=== PATIENT | male | born 1980 | race Caucasian/White ===

== ENCOUNTER 2018-01-23 01:14 | Emergency (ER) | payer BC ==
[2018-01-23] MEDS ORDERED: Hydrocortisone Acetate 25 MG Supp RECTAL STA (01:45)
--- NOTE | 2018-01-23 01:53 | EDM.PDOC ---
ED HPI GENERAL MEDICAL PROBLEM - General Chief Complaint: Gastrointestinal Problem Stated Complaint: HEMORRHOIDS Time Seen by Provider: 01/23/18 01:39 Source of Information: Reports: Patient, RN Notes Reviewed History Limitations: Reports: No Limitations - History of Present Illness INITIAL COMMENTS - FREE TEXT/NARRATIVE: 37-year-old gentleman presents to emergency department day complaint of hemorrhoids, he states this particular hemorrhoid has been on going for the last 3 days it is painful he has tried Tucks and witch mykel as well as Preparation H without any relief hemrrhoid Pain Score (Numeric/FACES): 5 - Related Data Allergies Allergy/AdvReac Type Severity Reaction Status Date / Time Penicillins Allergy Cannot Verified 01/23/18 01:35 Remember Home Meds: Home Meds Fexofenadine/Pseudoephedrine [Joyce-D 24 Hour Tablet] 1 tab PO DAILY 01/23/18 [History] Past Medical History - Past Health History Medical/Surgical History: Denies Medical/Surgical History Social & Family History - Tobacco Use Smoking Status *Q: Current Every Day Smoker Years of Tobacco use: 20 Packs/Tins Daily: 0.5 - Caffeine Use Caffeine Use: Reports: Coffee, Energy Drinks, Soda, Tea - Recreational Drug Use Recreational Drug Use: No ED ROS GENERAL - Review of Systems Review Of Systems: See Below GI/Abdominal: Reports: Other (Hemorrhoids) ED EXAM, GI/ABD - Physical Exam Exam: See Below (Hemorrhoids hemorrhoids) Exam Limited By: No Limitations General Appearance: Alert, WD/WN, No Apparent Distress Rectal (Males) Exam: Normal Exam, Normal Rectal Tone, Hemorrhoids (Thrombosed) Course - Vital Signs Last Recorded V/S: Last Vital Signs Temp 97.7 F 01/23/18 01:32 Pulse 105 H 01/23/18 01:32 Resp 16 01/23/18 01:32 BP 128/84 01/23/18 01:32 Pulse Ox 98 01/23/18 01:32 - Orders/Labs/Meds Meds: Medications Discontinued Medications Generic Name Dose Route Start Last Admin Trade Name Freq PRN Reason Stop Dose Admin Hydrocortisone Acetate 25 mg 01/23/18 01:45 Anucort-Hc RECTAL 01/23/18 01:46 NOW STA Departure - Departure Time of Disposition: 01:52 Disposition: Home, Self-Care 01 Condition: Fair Clinical Impression: Hemorrhoids Qualifiers: Hemorrhoid type: third degree Qualified Code(s): K64.2 - Third degree hemorrhoids - Discharge Information Referrals: PCP,None [Primary Care Provider] - Additional Instructions: Try the steroid cream please contact the clinic in the morning for an appointment time - Assessment/Plan Plan: Assessment Acuity = acute Site and laterality = thrombosed hemorrhoid Etiology = weakness and venous structure Manifestations = none Location of injury = Home Lab values = none Plan I did offer him surgical incision of his thrombosed hemorrhoid he declined would prefer to try Anusol HC and watchful waiting consultation was set up with general surgery in the clinic for the end of the week This note was dictated using [employer] voice recognition software please call with any questions on syntax or grammar.
== END 2018-01-23 01:58 | disposition home or self-care (01) ==
LOC: JP.ED 01:14
DX: K64.2 Third degree hemorrhoids (principal); F17.210 Nicotine dependence, cigarettes, uncomplicated; Z88.0 Allergy status to penicillin; Z79.899 Other long term (current) drug therapy
CPT/HCPCS: 99285; A9270

== ENCOUNTER 2019-05-23 16:02 | Emergency (ER) | payer BC ==
--- NOTE | 2019-05-23 18:27 | EDM.PDOC ---
ED HPI GENERAL MEDICAL PROBLEM - General Chief Complaint: Chest Pain Stated Complaint: CHEST PAINS Time Seen by Provider: 05/23/19 18:05 Source of Information: Reports: Patient History Limitations: Reports: No Limitations - History of Present Illness INITIAL COMMENTS - FREE TEXT/NARRATIVE: 37-year-old male with intermittent abdominal and chest pain for 3 months. Seems to be worse when he is relaxed or at rest. Does not seem to be related to eating or activity. He goes several days at times without symptoms, then will have a day or 2 where he has right upper quadrant abdominal pain and over the past several weeks started developed some intermittent left-sided chest discomfort. He also feels like his left arm goes numb at times and has some right heel pain. He went into the clinic to talk about these issues 2 months ago, a work-up was initiated and nothing was found. They told him if it does not improve over the course of the next 1 to 2 months to return and some additional work-up will be done, he went into the clinic today to talk about this and they sent him to the emergency room, unfortunately he was not triaged at the clinic by his provider and no phone call was provided or history of the work-up. At the time I saw him he had some very vague upper abdominal discomfort but otherwise was comfortable. He has had no diarrhea or constipation, dark stools, nausea or vomiting, weight loss, or shortness of breath or symptoms with activity. Onset: Gradual Duration: Chronic (Over 3 months) Location: Reports: Chest, Abdomen Associated Symptoms: Denies: Fever/Chills, Loss of Appetite, Malaise, Nausea/ Vomiting, Shortness of Breath chest Pain Score (Numeric/FACES): 1 - Related Data Allergies Allergy/AdvReac Type Severity Reaction Status Date / Time Penicillins Allergy Itching Verified 05/23/19 16:33 Home Meds: Home Meds Loratadine [Claritin] 10 mg PO DAILY 05/23/19 [History] Past Medical History - Past Health History Medical/Surgical History: Denies Medical/Surgical History Social & Family History - Tobacco Use Smoking Status *Q: Former Smoker Used Tobacco, but Quit: Yes Month/Year Tobacco Last Used: 1 - Caffeine Use Caffeine Use: Reports: Coffee, Energy Drinks - Recreational Drug Use Recreational Drug Use: No ED ROS GENERAL - Review of Systems Review Of Systems: See Below Constitutional: Denies: Fever, Chills, Decreased Appetite HEENT: Reports: No Symptoms Respiratory: Reports: Other (Mild intermittent left chest pain unrelated to activity). Denies: Shortness of Breath Cardiovascular: Reports: Chest Pain. Denies: Palpitations GI/Abdominal: Reports: Abdominal Pain (Mostly epigastric and right upper quadrant, not related to activity or meals, seems to be worse when at rest) Skin: Reports: No Symptoms Neurological: Reports: No Symptoms Psychiatric: Reports: No Symptoms ED EXAM, GENERAL - Physical Exam Exam: See Below Exam Limited By: No Limitations General Appearance: Alert, No Apparent Distress Eye Exam: Bilateral Eye: Normal Inspection (No jaundice) Throat/Mouth: Normal Inspection Head: Atraumatic Respiratory/Chest: No Respiratory Distress, Lungs Clear Cardiovascular: Regular Rate, Rhythm GI/Abdominal: Soft, Tender (Does react with discomfort with palpation across the upper abdomen but no focal rebound or guarding) Neurological: Alert, Oriented Psychiatric: Normal Affect, Normal Mood Skin Exam: Warm, Dry Course - Vital Signs Last Recorded V/S: Last Vital Signs Temp 97.8 F 05/23/19 16:35 Pulse 70 05/23/19 16:35 Resp 16 05/23/19 16:35 BP 136/91 H 05/23/19 16:35 Pulse Ox 97 05/23/19 16:35 - Orders/Labs/Meds Labs: Laboratory Tests 05/23/19 05/23/19 Range/Units 18:12 18:12 WBC 7.9 (4.5-11.0) K/uL RBC 5.33 (4.30-5.90) M/uL Hgb 16.8 H (12.0-15.0) g/dL Hct 46.4 (40.0-54.0) % MCV 87 (80-98) fL MCH 32 H (27-31) pg MCHC 36 (32-36) % Plt Count 264 (150-400) K/uL Neut % (Auto) 67 H (36-66) % Lymph % (Auto) 24 (24-44) % Patrick % (Auto) 6 (2-6) % Eos % (Auto) 2 (2-4) % Baso % (Auto) 1 (0-1) % Sodium 140 (140-148) mmol/L Potassium 4.3 (3.6-5.2) mmol/L Chloride 102 (100-108) mmol/L Carbon Dioxide 29 (21-32) mmol/L Anion Gap 8.6 (5.0-14.0) mmol/L BUN 16 (7-18) mg/dL Creatinine 0.9 (0.8-1.3) mg/dL Est Cr Clr Drug Dosing 122.15 mL/min Estimated GFR (MDRD) > 60 (>60) Glucose 94 (74-106) mg/dL Calcium 9.3 (8.5-10.1) mg/dL Total Bilirubin 0.8 (0.2-1.0) mg/dL AST 14 L (15-37) U/L ALT 30 (12-78) U/L Alkaline Phosphatase 63 (46-116) U/L Troponin I < 0.017 (0.000-0.056) ng/mL Total Protein 7.5 (6.4-8.2) g/dL Albumin 4.2 (3.4-5.0) g/dL Globulin 3.3 (2.3-3.5) g/dL Albumin/Globulin Ratio 1.3 (1.2-2.2) Lipase 145 (73-393) U/L - Re-Assessments/Exams Free Text/Narrative Re-Assessment/Exam: 05/23/19 19:04 Patient remained comfortable while in the emergency room and all his labs are normal and waiting an extended chemistry profile and troponin. I do not see a significant benefit to a CT scan at this time. I would like to try at least 2 weeks of daily omeprazole, and then recheck if not improving. Patient is comfortable with the plan. Departure - Departure Time of Disposition: 19:30 Disposition: Home, Self-Care 01 Clinical Impression: Intermittent upper abdominal pain - Discharge Information Instructions: Abdominal Pain, Adult Referrals: PCP,None [Primary Care Provider] - Forms: ED Department Discharge Care Plan Goals: Try at least 1 dose of omeprazole, 20 mg, daily for at least 2 weeks and increase activity as tolerated. Avoid smoking if possible. Recheck in 2 weeks if not improving satisfactorily, or return anytime if worsening or concerns. Sepsis Event Note - Evaluation Sepsis Screening Result: No Definite Risk - Focused Exam Vital Signs: Vital Signs Temp Pulse Resp BP Pulse Ox 05/23/19 16:35 97.8 F 70 16 136/91 H 97 05/23/19 16:32 97.8 F 70 16 136/91 H 97 Date Exam was Performed: 05/23/19 Time Exam was Performed: 21:11
== END 2019-05-23 19:15 | disposition home or self-care (01) ==
LOC: EDBD → MERGE 16:02 → JP.ED 16:02
DX: R10.11 Right upper quadrant pain (principal); Z88.0 Allergy status to penicillin; Z79.899 Other long term (current) drug therapy; Z87.891 Personal history of nicotine dependence
CPT/HCPCS: 36415; 80053; 83690; 84484; 85025; 99284